=== PATIENT | female | born 1950 ===

== ENCOUNTER 2018-03-27 13:01 | Outpatient (CLI) | payer OTHER | END 2018-03-27 13:16 | disposition home or self-care (01) | LOC: MAMO-SONO 13:01 | DX: Z12.31 Encounter for screening mammogram for malignant neoplasm of breast (principal); N61.0 Mastitis without abscess ==

== ENCOUNTER 2019-07-31 11:28 | Outpatient (CLI) | payer OTHER | END 2019-07-31 11:39 | disposition home or self-care (01) | LOC: MAMO-SONO 11:28 | DX: Z12.31 Encounter for screening mammogram for malignant neoplasm of breast (principal); N60.11 Diffuse cystic mastopathy of right breast; N60.12 Diffuse cystic mastopathy of left breast ==